=== PATIENT | female | born 1940 | race Caucasian/White ===

== ENCOUNTER 2017-04-14 18:53 | Emergency (ER) | payer OTHER ==
[2017-04-14 19:08] VITALS: BP 136/72; PULSE 71; TEMP 98.3; BMI 31.2
--- NOTE | 2017-04-14 20:18 | PDOC ---
Attending Attestation - Resident Resident Name: Georges Gonzalez - ED Attending Attestation I have performed the following: I have examined & evaluated the patient, The case was reviewed & discussed with the resident, I agree w/resident's findings & plan - HPI HPI: 04/14/17 20:43 Pt comes with chest pain, left upper breast (this is different from her usual hiatal hernia pain that affects the left lower breast area, that began today this AM, and has been ongoing and sitting in that area. Pt can reproduce the pain when she presses on small cysts in her breast. She has no nausea, and she was able to eat B,L,D. She went to see her gas singer last week and she was told she has a Hb 8, which is down from 13 last year. She has an appointment with PMD on Sunday. 04/14/17 22:09 - Physicial Exam PE: 04/14/17 22:11 Agree with resident exam. - Medical Decision Making 04/14/17 22:11 Labs normal. EKG normal and CXR normal. Vitals normal. Pt will go home with PMD follow up.
--- NOTE | 2017-04-14 20:37 | PDOC ---
History of Present Illness - General Chief Complaint: Chest Pain Stated Complaint: CHEST PAIN Time Seen by Provider: 04/14/17 20:07 History Source: Patient Exam Limitations: No Limitations - History of Present Illness Initial Comments: 04/14/17 20:38 76F with pmh of HTN and hiatal hernia presents with left sided chest and back pain since waking up this morning. Pain is non radiating, burning in quality and reproducible with palpation. Took at [facility] at 4pm Denies diaphoresis, acute shortness of breath.. Recent stress test at Dr. Marshall last was negative. Was found to be anemic since last year (hgb 13 to 8) likely from gi bleed. PCP: Bobby, next appointment on Sunday. 04/14/17 20:50 Past History - Past Medical History Allergies/Adverse Reactions: Allergies Allergy/AdvReac Type Severity Reaction Status Date / Time No Known Allergies Allergy Verified 04/14/17 19:06 Home Medications: Ambulatory Orders Amlodipine Besylate [Norvasc -] 10 mg PO DAILY 07/13/14 Metoprolol Succinate [Toprol Xl -] 100 mg PO DAILY 07/13/14 Famotidine [Pepcid] 20 mg PO DAILY #14 tablet 05/23/15 COPD: No HTN: Yes - Immunization History Immunization Up to Date: Yes - Suicide/Smoking/Psychosocial Hx Smoking History: Never smoked Have you smoked in the past 12 months: No Information on smoking cessation initiated: No Hx Alcohol Use: No Drug/Substance Use Hx: No Substance Use Type: None Review of Systems - Review of Systems Constitutional: Yes: Weakness. No: Symptoms Reported HEENTM: No: Symptoms Reported Respiratory: Yes: Shortness of Breath Cardiac (ROS): Yes: See HPI ABD/GI: No: Symptoms Reported : Yes: Symptoms Reported Musculoskeletal: No: Symptoms Reported *Physical Exam - Vital Signs Last Vital Signs Temp Pulse Resp BP Pulse Ox 98.3 F 71 18 136/72 100 04/14/17 19:06 04/14/17 19:06 04/14/17 19:06 04/14/17 19:06 04/14/17 19:06 - Physical Exam General Appearance: Yes: Nourished, Appropriately Dressed. No: Apparent Distress HEENT: positive: EOMI, ANAID, Normal ENT Inspection Respiratory/Chest: positive: Chest Tender (left chest and left back.), Lungs Clear, Normal Breath Sounds. negative: Respiratory Distress Cardiovascular: positive: Regular Rhythm, Regular Rate, S1, S2 Gastrointestinal/Abdominal: positive: Normal Bowel Sounds, Flat, Soft. negative : Tender Musculoskeletal: positive: Normal Inspection Extremity: positive: Normal Capillary Refill, Normal Inspection ED Treatment Course - LABORATORY CBC & Chemistry Diagram: 04/14/17 20:30 04/14/17 20:30 Medical Decision Making - Medical Decision Making 04/14/17 21:46 ekg negative. basic labs, ua, cardiac enzyme. 04/14/17 22:30 All negative. follow up on Sunday with Dr. Gabriel's office. *DC/Admit/Observation/Transfer Diagnosis at time of Disposition: Atypical chest pain - Discharge Dispostion Disposition: HOME Admit: No - Referrals - Patient Instructions Printed Discharge Instructions: DI for Atypical Chest Pain Additional Instructions: Follow up with Dr. Gabriel on Sunday. Come back to the ER for any new, worsening or concerning symptom. - Post Discharge Activity Forms/Work/School Notes: Back to Work
[2017-04-14 21:05] LABS: BASO % 0.8 % (0-2.0); EOS % 3.1 % (0-4.5); HEMATOCRIT 27.1 % (32.4-45.2); HEMOGLOBIN 8.2 GM/dL (10.7-15.3); LYMPH % 22.4 % (8-40); MCH 20.1 pg (25.7-33.7); MCHC 30.3 g/dl (32.0-36.0); MEAN CELL VOLUME 66.5 fl (80-96); MEAN PLT VOLUME 6.5 fl (7.5-11.1); MONO % 8.7 % (3.8-10.2); PLATELET COUNT 405 K/MM3 (134-434); RBC 4.08 M/mm3 (3.60-5.2); RDW 18.1 % (11.6-15.6); WHITE BLOOD COUNT 8.6 K/mm3 (4.0-10.0)
[2017-04-14 21:09] LABS: ADD RBC MORPHOLOGY YES
[2017-04-14 21:26] LABS: ALBUMIN 3.4 g/dl (3.4-5.0); ANION GAP 7 (8-16); BILIRUBIN,TOTAL 0.6 mg/dL (0.2-1.0); BLOOD UREA NITROGEN 29 mg/dL (7-18); CALCIUM 8.1 mg/dL (8.5-10.1); CHLORIDE 109 mmol/L (98-107); CO2 25 mmol/L (21-32); CREATININE 1.2 mg/dL (0.55-1.02); GLUCOSE,RANDOM 89 mg/dL (74-106); POTASSIUM 4.5 mmol/L (3.5-5.1); SGOT/AST 13 U/L (15-37); SGPT/ALT 19 U/L (12-78); SODIUM 141 mmol/L (136-145); TOT PROT 7.2 g/dl (6.4-8.2)
[2017-04-14 21:29] LABS: ALK PHOS 74 U/L (45-117)
[2017-04-14] MEDS ORDERED: ONDANSETRON 4 MG/2 ML VIAL IVPUSH ONE (21:59)
[2017-04-14] MEDS ORDERED: IBUPROFEN 600 MG TABLET (FP) PO ONE ×2 (22:12→22:54)
[2017-04-14 22:18] LABS: ANISOCYTOSIS 1+; MACROCYTOSIS 1+; OVALOCYTE 1+
[2017-04-14 22:19] LABS: PLATELET ESTIMATE ADEQUATE
--- NOTE | 2017-04-15 16:07 | EKG ---
Test Reason : Blood Pressure : / mmHG Vent. Rate : 064 BPM Atrial Rate : 068 BPM P-R Int : 148 ms QRS Dur : 066 ms QT Int : 392 ms P-R-T Axes : 035 -03 043 degrees QTc Int : 404 ms NORMAL SINUS RHYTHM WITH SINUS ARRHYTHMIA POSSIBLE ANTERIOR INFARCT , AGE UNDETERMINED ABNORMAL ECG WHEN COMPARED WITH ECG OF 23-MAY-2015 15:02, NO SIGNIFICANT CHANGE WAS FOUND Confirmed by Douglas Leger ([id number]) on 04/15/2017 4:06:31 PM Referred By: Confirmed By:Douglas Leger
== END 2017-04-14 23:20 | disposition home or self-care (01) ==
LOC: JER 18:53
PROC: 3E033GC Introduction of Other Therapeutic Substance into Peripheral Vein, Percutaneous Approach (ICD-10-PCS; principal; 2017-04-14)
DX: I10 Essential (primary) hypertension (principal); D64.9 Anemia, unspecified
CPT/HCPCS: 36415; 71046-TC; 80053; 82550; 84484; 85025; 93005; 93010; 96374; 99281-25

== ENCOUNTER 2017-07-24 06:51 | Day surgery (SDC) | payer OTHER ==
[2017-07-23 14:10] VITALS: BMI 30.8
[2017-07-24] MEDS ORDERED: PROPOFOL 20 ML ONE ×5 (07:52)
[2017-07-24] MEDS ORDERED: LIDOCAINE HCL/PF 2% SDV 5ML VIAL ONE (07:52)
[2017-07-24] MEDS ORDERED: SUCCINYLCHOLINE CHLORIDE 200 MG/10 ML VIAL ONE (07:52)
[2017-07-24 08:13] VITALS: TEMP 97.5
[2017-07-24 08:36] VITALS: BP 121/80
[2017-07-24 15:29] VITALS: PULSE 66
== END 2017-07-24 09:15 | disposition home or self-care (01) ==
LOC: JASU-ENDO 06:51
PROVIDERS: ATTEND Internal Medicine Gastroenterology
PROC: 0DJ08ZZ Inspection of Upper Intestinal Tract, Via Natural or Artificial Opening Endoscopic (ICD-10-PCS; principal; 2017-07-24 08:00)
DX: D50.9 Iron deficiency anemia, unspecified (principal)

== ENCOUNTER 2020-12-23 04:52 | Day surgery (SDC) | payer OTHER ==
[2020-12-22 13:40] VITALS: BMI 29.5
[2020-12-23 12:54] VITALS: TEMP 97.3
[2020-12-23 14:17] VITALS: BP 114/59; PULSE 80
== END 2020-12-23 13:50 | disposition home or self-care (01) ==
LOC: JASU-SURG 04:52
PROVIDERS: ATTEND Internal Medicine Gastroenterology
PROC: 0DJD8ZZ Inspection of Lower Intestinal Tract, Via Natural or Artificial Opening Endoscopic (ICD-10-PCS; principal; 2020-12-23 12:36)
DX: K57.30 Diverticulosis of large intestine without perforation or abscess without bleeding (principal); K64.8 Other hemorrhoids